=== PATIENT | male | born 1945 | race Caucasian/White ===

== ENCOUNTER 2024-11-14 19:43 | Emergency (ER) | payer MEDICARE, OTHER ==
[~2024-11-14] VITALS: Ht 188 cm; Wt 91.8 kg
[2024-11-14 19:58] VITALS: BP 102/84; PULSE 85; RESP 16; O2SAT 95
[2024-11-14] MEDS: LidoCAINE 2% Topical Jelly 11mL syringe (UROJET) TOP ONE (20:38)
[2024-11-14 20:54] VITALS: TEMP 97.9
== END 2024-11-14 20:59 | disposition home or self-care (01) ==
LOC: ER 19:43
DX: R39.89 Other symptoms and signs involving the genitourinary system (principal); R33.8 Other retention of urine
CPT/HCPCS: 51702; 99284; A4314; A4358; 99281; 99283